=== PATIENT | female | born 1955 | race Caucasian/White ===

== ENCOUNTER 2019-01-03 17:03 | Inpatient (IN) | payer MEDICARE, MEDICAID ==
[~2019-01-03 17:03] MED LIST: CALC500C16 PO; LORA0.5T11 PO
[2019-01-03 18:03] LABS: HEMATOCRIT 49.1 % (36.0-47.0); MEAN CORPUSCULAR HEMOGLOBIN 29.3 pg (27.0-33.0); MEAN CORPUSCULAR HGB CONC 32.6 g/dl (32.0-36.5); MEAN CORPUSCULAR VOLUME 89.8 fl (80.0-96.0); PLATELET COUNT, AUTOMATED 252 10^3/uL (150-450); RED BLOOD COUNT 5.47 10^6/uL (4.00-5.40); WHITE BLOOD COUNT 6.4 10^3/uL (4.0-10.0)
[2019-01-03 18:49] LABS: AMPHETAMINES LEVEL URINE NEGATIVE (NEGATIVE); BARBITURATES URINE NEGATIVE (NEGATIVE); BENZODIAZEPINES URINE NEGATIVE (NEGATIVE); CANNABINOIDS URINE NEGATIVE (NEGATIVE); COCAINE METABOLITE URINE NEGATIVE (NEGATIVE); METHADONE URINE NEGATIVE (NEGATIVE); OPIATES URINE NEGATIVE (NEGATIVE); PHENCYCLIDINE URINE NEGATIVE (NEGATIVE)
[2019-01-03 18:50] LABS: ACETAMINOPHEN LEVEL < 2.0 UG/ML (10.0-30.0); ALBUMIN 4.1 GM/DL (3.2-5.2); ALT/SGPT 21 U/L (12-78); BILIRUBIN,DIRECT 0.1 MG/DL (0.0-0.2); BILIRUBIN,TOTAL 0.5 MG/DL (0.2-1.0); BLOOD UREA NITROGEN 11 MG/DL (7-18); CALCIUM LEVEL 9.4 MG/DL (8.8-10.2); CARBON DIOXIDE LEVEL 27 MEQ/L (21-32); CHLORIDE LEVEL 109 MEQ/L (98-107); CREATININE FOR GFR 0.79 MG/DL (0.55-1.30); ETHYL ALCOHOL (ETHANOL) < 0.003 % (0.000-0.010); GLOMERULAR FILTRATION RATE > 60.0 (>45); GLUCOSE, FASTING 99 MG/DL (70-100); POTASSIUM SERUM 3.9 MEQ/L (3.5-5.1); SALICYLATE LEVEL < 1.7 MG/DL (5.0-30.0); SODIUM LEVEL 142 MEQ/L (136-145); TOTAL PROTEIN 7.3 GM/DL (6.4-8.2)
[2019-01-03] MEDS ORDERED: PATIENT COMMENTS (21:12)
[2019-01-03] MEDS ORDERED: MAALOX 30 ML SUSP *UDC PO PRN (22:00)
[2019-01-03] MEDS ORDERED: MOM 30ML SUSPENSION UDC PO PRN (22:00)
[2019-01-03] MEDS ORDERED: traZODone 50 MG TAB PO PRN (22:00)
[2019-01-03] MEDS ORDERED: ACETAMINOPHEN TAB 650MG DOSE (2X325MG) PO PRN (22:00)
[2019-01-03] MEDS: LORazepam 0.5 MG TAB PO PRN (23:26)
[2019-01-04 06:36] VITALS: BP 137/69
[2019-01-04] MEDS: SERTRALINE 100 MG TAB PO SCH (09:00)
[2019-01-04] MEDS: LORazepam 0.5 MG TAB PO PRN (09:21)
--- NOTE | 2019-01-04 16:10 | HPEPDOC ---
General Date of Admission January 03, 2019 at 21:49 Chief Complaint The patient is a 64-year-old female admitted with a reason for visit of Unspecif ied Depressive Disorder. History of Present Illness Patient is a 64-year-old female, past medical history significant for developmental delay, obesity, depression and anxiety, brought to the emergency room by police on account of auditory hallucinations. There is documentation of noncompliance with medications and follow-up with treating providers. Yesterday, patient was deemed to have escalated to the point where she was thought to be a danger to herself, so they brought her to the emergency room for admission to inpatient psychiatric unit for further evaluation and management. On assessment, patient is unwilling to be evaluated stating she is afraid, and also refused physical exam. Home Medications Scheduled PRN Calcium Carbonate (Calcium) 500 Mg Chw, 500 MG PO PRN PRN for HEARTBURN, (Reported) Lorazepam (Lorazepam) 0.5 Mg Tab, 0.5 MG PO TID PRN for ANXIETY/AGITATION, (Reported) Miscellaneous Medications [Patient Comments] , (Reported) PATIENT STATES SHE TOOK HER LORAZEPAM THIS MORNING THEN SAID SHE DIDN'T TAKE ANYTHING. Allergies Coded Allergies: Penicillins (Verified Allergy, Unknown, 01/03/19) pt unsure of allergy and is a poor historian Past Medical History Medical History Obesity Medical nonadherence Developmental delay Surgical History Cholecystectomy Family History Patient declined assessment Social History * Smoker: Denies Alcohol: Denies Drugs: denies A-FIB/CHADSVASC A-FIB History Current/History of A-Fib/PAF?: No Current Oral Anticoagulant The: No Review of Systems Other systems patient declined assessment Physical Examination Other physical findings General: NAD. Skin: Warm, dry, intact. Respiratory: no accessory muscle use noted. Abdomen: no distention Musculoskeletal: No joint deformities, Neurologic: CN 2-12 grossly intact, Psychiatric: Anxious Vital Signs Vital Signs Date Time Temp Pulse Resp B/P (MAP) Pulse Ox O2 Delivery O2 Flow Rate FiO2 01/04/19 09:49 Room Air 01/04/19 06:36 97.4 72 16 137/69 (91) 01/03/19 17:05 99 Laboratory Data Labs 24H Laboratory Tests 2 01/03/19 17:56: Nucleated Red Blood Cells % (auto) 0.0, Anion Gap 6L, Glomerular Filtration Rate > 60.0, Calcium Level 9.4, Aspartate Amino Transf (AST/SGOT) 16, Alanine Aminotransferase (ALT/SGPT) 21, Alkaline Phosphatase 79, Total Bilirubin 0.5, Direct Bilirubin 0.1, Total Protein 7.3, Albumin 4.1, Albumin/Globulin Ratio 1.28, Thyroid Stimulating Hormone (TSH) 1.750, Salicylates Level < 1.7L, Acetaminophen Level < 2.0L, Ethyl Alcohol Level < 0.003 01/03/19 17:59: Urine Amphetamines Screen NEGATIVE, Urine Benzodiazepines Screen NEGATIVE, Urine Opiates Screen NEGATIVE, Urine Methadone Screen NEGATIVE, Urine Barbiturates Screen NEGATIVE, Urine Phencyclidine Screen NEGATIVE, Urine Cocaine Metabolite Screen NEGATIVE, Urine Cannabinoids Screen NEGATIVE 01/04/19 14:40: CBC/BMP Laboratory Tests 01/03/19 17:56 Red Blood Count 5.47 H, Mean Corpuscular Volume 89.8, Mean Corpuscular Hemoglobin 29.3, Mean Corpuscular Hemoglobin Concent 32.6, Red Cell Distribution Width 13.2 Microbiology Microbiology 01/04/19 Urine Culture, Received Pending Assessment/Plan Altered mental status -At this time etiology is unclear -Urinalysis ordered with culture and sensitivity to evaluate for possible urinary tract infection Depression/Anxiety -Management by primary team DVT prophylaxis -Patient is frequently ambulatory Plan / VTE VTE Prophylaxis Ordered?: No VTE Exclusion Mechanical Proph: Low Risk for VTE LILIA CAO January 04, 2019 16:10
[2019-01-04 16:12] LABS: APPEARANCE, URINE CLOUDY (CLEAR); BACTERIA, URINE AUTO NEGATIVE (NEGATIVE); BILIRUBIN, URINE AUTO NEGATIVE (NEGATIVE); BLOOD, URINE BLOOD 1+ (NEGATIVE); CALCIUM OXALATE CRYSTALS LARGE; COLOR, URINE YELLOW (YELLOW); GLUCOSE, URINE (UA) AUTO NEGATIVE (NEGATIVE); KETONE, URINE AUTO NEGATIVE (NEGATIVE); LEUKOCYTE ESTERASE, URINE AUTO 3+ (NEGATIVE); MUCUS, URINE SMALL (NEGATIVE); NITRITE, URINE AUTO NEGATIVE (NEGATIVE); PROTEIN, URINE AUTO NEGATIVE (NEGATIVE); RBC, URINE AUTO 5 /HPF (0-3); SPECIFIC GRAVITY URINE AUTO 1.018 (1.002-1.035); SQUAMOUS EPITHELIAL CELL UR AU 15 /HPF (0-6); TRANSITIONAL EPITHELIAL AUTO 3 /HPF; UROBILINOGEN, URINE AUTO 0.2 mg/dL (0.0-2.0); WBC, URINE AUTO 123 /HPF (0-3)
[2019-01-04 18:00] VITALS: BP 129/60
--- NOTE | 2019-01-04 18:51 | MHHPEPDOC ---
General Date Of Admission: January 04, 2019 Legal Status: 9.39 Chief Complaint Her PCP issued a case picker order because she is decompensating, has been non compliant and seems to be very guarded, she has been isolative, says that her phone has been ringing History of Present Illness HISTORY OF THE PRESENT ILLNESS: Patient is a 64 -year-old , female, who, as per ED report: "[facility] , because pt has been non-compliant with her medications, has a functional MR rating (per Siri) has been decompensating since Oct 2018, secluding herself, confused, "somebody keeps calling her phone, weird noises," Pt states she has been crying all the time, stays with other tenants "doesn't wish to be alone," pt says she does take her medications, denies being suicidal, or wishing to kill herself, birthday was yesterday on the , denies hearing voices, yet she seems to be responding to internal stimuli, talking to herself, or someone not in the room, paranoid about having to go to psyche and "they are not going to let me go home." Pt also stated her brother at age 47 killed himself with a shotgun to the head. Pt is very guarded in her presentation, tearful at times, not sure why she is here. Most of the informat ion was gathered from pt's [employer] family independence case manager Flavio So [phone]. Siri stated also that the pt resides alone, has adult protective in the apartment, and is usually very independent, and siri has concerns for pt's safety as well as the Pt's PCP Jono" Psychiatric Review of Systems Depression (2 or more weeks): depressed mood, anhedonia, feelings of worthlesn ess, decreased energy, difficulty concentrating, psychomotor changes, other (hopeless and helpless) Mili (4 or more days of): denies Psychosis: paranoia, other (She seems to be responding to internal stimuli, at times she makes movements with her lips as if she would be praying, she is guarded, not providing information) PTSD: denies Anxiety: gen/non-specific anxiety Anxiety/ 6 months or more of: other (patient couldn't answer all my questions, she seems very anxious but she is vey guarded) Past Psychiatric History Previous Psychiatric Diagnosis: Unknown Previous Psychiatric Admissions: Unknown, patient is not able to tell me if has been or has not been hospitalized Suicide Attempts: Denies Psychiatric Follow-up: Denies Psychiatric medications: Denies. Past Medical History Medical Problems The patient is internally preoccupied an very guarded, she was uncooperative with the interview Family Medical/Psychiatric HX Medical Problems She said both her parents , she couldn't say what was the cause of , she said she had siblings but she didn't know where they were and has no idea if they are alive or not. she was very guarded and was not able to respond the other questions, she kept getting up as if she was preoccupied with another person in the room Addiction History denies Social History Childhood: Unknown, patient could not cooperate with the interview, she was very guarded Abuse/Trauma: Denies Current Living Situation: She says she lives in [place], says she rents an apartment, has been there for 11 years Education: unknown, patient is not answering this question Employment: Unemployed Social Support: None, she says Legal: Denies Marital: Never , has no children. Mental Status Examination General Appearance: unkempt, disheveled, ds/not appear stated age (looks o lder), hospital scubs/clothing Build: average Demeanor: mistrustful, withdrawn, preoccupied, very figety Eye Contact: avoidant, poor Activity: anxious Behavior: resistant, restless, withdrawn Speech: slow, low in volume, non-spontaneous, impoverished Mood: depressed, anxious Affect: constricted, inappropriate, congruent, anxious Thought Process: other (she seems to be psychotic, she doesn't respond all the quetions during the interview during times when she seems to be responding to internal stimuli) Thought Content (Delusions): denies SI, HI, AVH, paranoia (she seems paranoid) Thought Content (Other): internal-stimuli Thought Content (Aggressive): none reported Perception (Hallucinations): other (she denies but seems to be responding to internal stimuli) Perception (Other): none reported Cognition (Impairment of): memory, attention/concentration Cognition(Intelligence Est.): borderline Oriented: Awake, Alert Insight: poor Judgment: Poor Psychosis: Psychotic Perceptions Diagnoses 1. Unspecified psychotic disorder 2. R/O JHON 3. R/O Mood disorder Assessment Patient seems to be very anxious, she couldn't open the milk container, she couldn't open he cup with the ice cream during dinner time. According to staff she appears as if she couldn't take care of herself but she can. According to history, she tells me she doesn't like her neighbors and stays to herself but the report from the ED says that she doesn't like to be alone and has been staying with other tenants. Will be started on antipsychotic medication Initial Treatment Plan 1. Patient was admitted on a [9.39] status. 2. Complete history was obtained. 3. With patients permission, family will be contacted and database will be expanded. 4. Patients medication regimen will be reviewed and changed accordingly. 5. Patient will be provided with protected environment. 6. Patient will be treated with individual, group, and milieu therapies. 7. Patient will receive supportive psych-education. 8. Discharge planning will commence immediately. 9. Outpatient follow-up treatment will be strongly recommended. 10. The initial treatment plan will focus initially on: * Depression. * Risk for suicide. * Substance abuse. ESTIMATED LENGTH OF STAY: - DAYS. TIME SPENT COUNSELING AND COORDINATING INITIAL CARE: minutes. Vital Signs Vital Signs Date Time Temp Pulse Resp B/P (MAP) Pulse Ox O2 Delivery O2 Flow Rate FiO2 01/04/19 09:49 Room Air 01/04/19 06:36 97.4 72 16 137/69 (91) 01/03/19 17:05 99 Laboratory Data 24H Labs Laboratory Tests 2 01/03/19 17:56: Nucleated Red Blood Cells % (auto) 0.0, Anion Gap 6L, Glomerular Filtration Rate > 60.0, Calcium Level 9.4, Aspartate Amino Transf (AST/SGOT) 16, Alanine Aminotransferase (ALT/SGPT) 21, Alkaline Phosphatase 79, Total Bilirubin 0.5, D irect Bilirubin 0.1, Total Protein 7.3, Albumin 4.1, Albumin/Globulin Ratio 1.28, Thyroid Stimulating Hormone (TSH) 1.750, Salicylates Level < 1.7L, Acetaminophen Level < 2.0L, Ethyl Alcohol Level < 0.003 01/03/19 17:59: Urine Amphetamines Screen NEGATIVE, Urine Benzodiazepines Screen NEGATIVE, Urine Opiates Screen NEGATIVE, Urine Methadone Screen NEGATIVE, Urine Barbiturates S creen NEGATIVE, Urine Phencyclidine Screen NEGATIVE, Urine Cocaine Metabolite Screen NEGATIVE, Urine Cannabinoids Screen NEGATIVE 01/04/19 14:40: Urine Appearance CLOUDYH, Urine Color YELLOW, Urine pH 5.0, Urine Specific [place] 1.018, Urine Protein NEGATIVE, Urine Glucose (UA) NEGATIVE, Urine Ketones NEGATIVE, Urine Urobilinogen 0.2, Urine Bilirubin NEGATIVE, Urine Leukocyte Esterase 3+H, Urine Blood 1+H, Urine Nitrite NEGATIVE, Urine WBC (Auto) 123H, Urine RBC (Auto) 5H, Urine Hyaline Casts (Auto) 0, Urine Bacteria (Auto) NEGATIVE, Urine Squamous Epithelial Cells 15, Urine Transitional Epithelial Cells 3, Urine Calcium Oxalate Cryst (Auto) LARGE, Urine Mucus (Auto) SMALL, Urine Sperm (Auto) CBC/BMP Laboratory Tests 01/03/19 17:56 Red Blood Count 5.47 H, Mean Corpuscular Volume 89.8, Mean Corpuscular Hemoglobin 29.3, Mean Corpuscular Hemoglobin Concent 32.6, Red Cell Distribution Width 13.2 Medications Scheduled PRN Calcium Carbonate (Calcium) 500 Mg Chw, 500 MG PO PRN PRN for HEARTBURN, (Reported) Lorazepam (Lorazepam) 0.5 Mg Tab, 0.5 MG PO TID PRN for ANXIETY/AGITATION, (Reported) Miscellaneous Medications [Patient Comments] , (Reported) PATIENT STATES SHE TOOK HER LORAZEPAM THIS MORNING THEN SAID SHE DIDN'T TAKE ANYTHING. Allergies Coded Allergies: Penicillins (Verified Allergy, Unknown, 01/03/19) pt unsure of allergy and is a poor historian JIMENEZ CHENEY MD January 04, 2019 17:33
[2019-01-04] MEDS ORDERED: BENZTROPINE 0.5 MG TAB PO PRN (19:00)
[2019-01-04] MEDS: CIPROFLOXACIN 500 MG TAB PO SCH (19:41)
[2019-01-04] MEDS: PALIPERIDONE 3 MG ER TAB (INVEGA) PO SCH (19:41)
[2019-01-05] MEDS: CIPROFLOXACIN 500 MG TAB PO SCH ×2 (06:20→17:27)
[2019-01-05 06:45] VITALS: BP 120/62
[2019-01-05] MEDS: SERTRALINE 100 MG TAB PO SCH (08:47)
--- NOTE | 2019-01-05 13:09 | IPNPDOC ---
Subjective Date Seen The patient was seen on 01/05/19. Subjective Chief Complaint/HPI Patient is a 64-year-old female, past medical history significant for developmental delay, obesity, depression and anxiety, brought to the emergency room by police on account of auditory hallucinations. Events since last encounter Patient has no complaints today. Objective Physical Examination Other physical findings General: NAD. Skin: Warm, dry, intact. Cardiovascular: Regular rate and rhythm, no MRG, no jugular venous distention, no edema. Respiratory:CTAB, no accessory muscle use noted. Abdomen: Bowel sounds +, no tenderness, no distention Musculoskeletal: No joint deformities, Neurologic: CN 2-12 grossly intact, alert and oriented to self and place Psychiatric: Anxious A-FIB/CHADSVASC A-FIB History Current/History of A-Fib/PAF?: No Current Oral Anticoagulant The: No Assessment /Plan Assessment UTI -has been started on abiotic therapy with Cipro -follow culture report for antibiotic adjustment if indicated. Plan/VTE VTE Prophylaxis Ordered?: No VTE Exclusion Mechanical Proph: Low Risk for VTE VS, I&O, 24H, Fishbone Vital Signs/I&O Vital Signs Date Time Temp Pulse Resp B/P (MAP) Pulse Ox O2 Delivery O2 Flow Rate FiO2 01/05/19 07:55 Room Air 01/05/19 06:45 98.0 69 16 120/62 (81) 01/03/19 17:05 99 Laboratory Data 24H LABS Laboratory Tests 2 01/04/19 14:40: Urine Appearance CLOUDYH, Urine Color YELLOW, Urine pH 5.0, Urine Specific [place] 1.018, Urine Protein NEGATIVE, Urine Glucose (UA) NEGATIVE, Urine Ketones NEGATIVE, Urine Urobilinogen 0.2, Urine Bilirubin NEGATIVE, Urine Leukocyte Esterase 3+H, Urine Blood 1+H, Urine Nitrite NEGATIVE, Urine WBC (Auto) 123H, Urine RBC (Auto) 5H, Urine Hyaline Casts (Auto) 0, Urine Bacteria (Auto) NEGATIVE, Urine Squamous Epithelial Cells 15, Urine Transitional Epithelial Cells 3, Urine Calcium Oxalate Cryst (Auto) LARGE, Urine Mucus (Auto) SMALL, Urine Sperm (Auto) Microbiology Microbiology 01/04/19 Urine Culture - Final, Complete LILIA CAO January 05, 2019 13:09
[2019-01-05 18:00] VITALS: BP 136/72
[2019-01-05] MEDS: PALIPERIDONE 3 MG ER TAB (INVEGA) PO SCH (20:03)
--- NOTE | 2019-01-05 20:59 | MHIPNPDOC ---
[facility] Progress Note Progress Note DATE OF SERVICE: 01/05/19 HISTORY: Patient is a 64 -year-old , female, who, as per ED report: "Pt presented with [facility] on a 9:57 pickup ordered by her PCP , because pt has been non-compliant with her medications, has a functional MR rating (per Siri) has been decompensating since Oct 2018, secluding herself, confused, "somebody keeps calling her phone, weird noises," Pt states she has been crying all the time, stays with other tenants "doesn't wish to be alone," pt says she does take her medications, denies being suicidal, or wishing to kill herself, birthday was yesterday on the , denies hearing voices, yet she seems to be responding to internal stimuli, talking to herself, or someone not in the room, paranoid about having to go to psyche and "they are not going to let me go home." Pt also stated her brother at age 47 killed himself with a shotgun to the head. Pt is very guarded in her presentation, tearful at times, not sure why she is here. Most of the information was gathered from pt's [employer] disease case manager Flavio So [phone]. Siri stated also that the pt resides alone, has adult protective in the apartment, and is usually very independent, and siri has concerns for pt's safety as well as the Pt's PCP Jono" VITAL SIGNS: See below. NEW TEST RESULTS: See below CURRENT MEDICATIONS: See below. MENTAL STATUS EXAMINATION: General Appearance: unkempt, disheveled, ds/not appear stated age (looks older), hospital scrubs/clothing Build: average Demeanor: mistrustful, withdrawn, preoccupied, very figety Eye Contact: avoidant, poor Activity: anxious Behavior: resistant, restless, withdrawn Speech: slow, low in volume, non-spontaneous, impoverished Mood: depressed, anxious Affect: constricted, inappropriate, congruent, anxious Thought Process: other (she seems to be psychotic, she doesn't respond all the quetions during the interview during times when she seems to be responding to internal stimuli) Thought Content (Delusions): denies SI, HI, AVH, paranoia (she seems paranoid) Thought Content (Other): internal-stimuli Thought Content (Aggressive): none reported Perception (Hallucinations): other (she denies but seems to be responding to internal stimuli) Perception (Other): none reported Cognition (Impairment of): memory, attention/concentration Cognition(Intelligence Est.): borderline Oriented: Awake, Alert Insight: poor Judgment: Poor Psychosis: Psychotic Perceptions Diagnoses 1. Unspecified psychotic disorder 2. R/O JHON 3. R/O Mood disorder ASSESSMENT: The mental status examination has not changed much since yesterday but she was able to tell me that she likes to keep to herself but that she has a friend in the apartment complex that she lives at and sometimes they visit each other. the patient's urinalysis came back yesterday and she has a UTI. Sill awaiting for the cultureand sensitivity results. she was started yesterday on Ciprofloxacin 500 mgs PO BID. UTI could have been the cause of her decompensation. Will do urinalysis (control) in a fed days. MANAGEMENT PLAN: Continue with the current treatment plan TIME SPENT: 15 minutes. Vital Signs Vital Signs Date Time Temp Pulse Resp B/P (MAP) Pulse Ox O2 Delivery O2 Flow Rate FiO2 01/05/19 07:55 Room Air 01/05/19 06:45 98.0 69 16 120/62 (81) 01/03/19 17:05 99 Current Medications Current Medications Acetaminophen (Tylenol Tab) 650 mg Q6HP PRN PO HEADACHE or DISCOMFORT; Start 01/03/19 at 22:00 Al Hydrox/Mg Hydrox/Simethicone (Mylanta) 30 ml Q4HP PRN PO HEARTBURN/INDIGESTION Last administered on 01/04/19at 16:40; Start 01/03/19 at 22:00 Benztropine Mesylate (Cogentin) 0.5 mg BID PRN PO EXTRAPYRAMIDAL SIDE EFFECTS; Start 01/04/19 at 19:00 Ciprofloxacin (Cipro) 500 mg BID@06,18 PO Last administered on 01/05/19at 17:27; Start 01/04/19 at 18:00 Home Med (Med Rec Complete!) ASDIRECTED XX ; Start 01/03/19 at 21:15; Stop 01/03/19 at 21:16; Status DC Lorazepam (Ativan) 0.5 mg TIDP PRN PO ANXIETY Last administered on 01/04/19at 09:21; Start 01/03/19 at 22:00 Magnesium Hydroxide (Milk Of Magnesia) 30 ml DAILYPRN PRN PO CONSTIPATION; Start 01/03/19 at 22:00 Paliperidone (Invega) 3 mg QHS PO Last administered on 01/05/19at 20:03; Start 01/04/19 at 21:00 Sertraline HCl (Zoloft) 100 mg DAILY PO Last administered on 01/05/19at 08:47; Start 01/04/19 at 09:00 Trazodone HCl (Desyrel) 50 mg QHSP PRN PO INSOMNIA Last administered on 01/03/19at 23:26; Start 01/03/19 at 22:00 Allergies Coded Allergies: Penicillins (Verified Allergy, Unknown, 01/03/19) pt unsure of allergy and is a poor historian JIMENEZ CHENEY MD January 05, 2019 20:52
[2019-01-06] MEDS: CIPROFLOXACIN 500 MG TAB PO SCH ×2 (06:15→17:23)
[2019-01-06 06:41] VITALS: BP 144/65
[2019-01-06] MEDS: SERTRALINE 100 MG TAB PO SCH (09:32)
[2019-01-06 18:24] VITALS: BP 128/65
--- NOTE | 2019-01-06 20:17 | MHIPNPDOC ---
[facility] Progress Note Progress Note DATE OF SERVICE: 01/06/19 HISTORY: Patient is a 64 -year-old , female, who, as per ED report: "Pt presented with [facility] on a 9:57 pickup ordered by her PCP , because pt has been non-compliant with her medications, has a functional MR rating (per Siri) has been decompensating since Oct 2018, secluding herself, confused, "somebody keeps calling her phone, weird noises," Pt states she has been crying all the time, stays with other tenants "doesn't wish to be alone," pt says she does take her medications, denies being suicidal, or wishing to kill herself, birthday was yesterday on the , denies hearing voices, yet she seems to be responding to internal stimuli, talking to herself, or someone not in the room, paranoid about having to go to psyche and "they are not going to let me go home." Pt also stated her brother at age 47 killed himself with a shotgun to the head. Pt is very guarded in her presentation, tearful at times, not sure why she is here. Most of the information was gathered from pt's [facility] business case analyst Flavio So [phone]. Siri stated also that the pt resides alone, has adult protective in the apartment, and is usually very independent, and siri has concerns for pt's safety as well as the Pt's PCP Jono" VITAL SIGNS: See below. NEW TEST RESULTS: See below CURRENT MEDICATIONS: See below. MENTAL STATUS EXAMINATION: General Appearance: Appropriate hygiene, ds/not appear stated age (looks older), hospital scrubs/clothing Build: average Demeanor: less mistrustful, less fidgety Eye Contact: Continues to be avoidant ut at times, very briefly, she is able to establish eye contact Activity: anxious Behavior: resistant, restless, withdrawn Speech: slow, low in volume, non-spontaneous, impoverished Mood: depressed, anxious Affect: constricted, inappropriate, congruent, anxious Thought Process: illogical, linear Thought Content (Delusions): denies SI, HI, AVH, paranoia (she seems paranoid) Thought Content (Other): internal-stimuli ( she seems to be mumbling or talking to herself at times) Thought Content (Aggressive): none reported Perception (Hallucinations): other (she denies but seems to be responding to internal stimuli) Perception (Other): none reported Cognition (Impairment of): memory, attention/concentration Cognition(Intelligence Est.): borderline Oriented: Awake, Alert Insight: poor Judgment: Poor Psychosis: Psychotic Perceptions Diagnoses 1. Unspecified psychotic disorder 2. R/O JHON 3. R/O Mood disorder ASSESSMENT: The patient continues to exhibit some dependant/co dependant behaviors, expecting other people to do things for her. It takes time for her to process some thoughts. she has been on antibiotics for some time now, she might improve once UTI resolved. MANAGEMENT PLAN: Continue with the current treatment plan TIME SPENT: 15 minutes. Vital Signs Vital Signs Date Time Temp Pulse Resp B/P (MAP) Pulse Ox O2 Delivery O2 Flow Rate FiO2 01/06/19 18:24 99.2 80 18 128/65 (86) 01/06/19 08:12 Room Air 01/03/19 17:05 99 Current Medications Current Medications Acetaminophen (Tylenol Tab) 650 mg Q6HP PRN PO HEADACHE or DISCOMFORT; Start 01/03/19 at 22:00 Al Hydrox/Mg Hydrox/Simethicone (Mylanta) 30 ml Q4HP PRN PO HEARTBURN/INDIGESTION Last administered on 01/04/19at 16:40; Start 01/03/19 at 22 :00 Benztropine Mesylate (Cogentin) 0.5 mg BID PRN PO EXTRAPYRAMIDAL SIDE EFFECTS; Start 01/04/19 at 19:00 Ciprofloxacin (Cipro) 500 mg BID@06,18 PO Last administered on 01/06/19at 17:23; Start 01/04/19 at 18:00 Home Med (Med Rec Complete!) ASDIRECTED XX ; Start 01/03/19 at 21:15; Stop 01/03/19 at 21:16; Status DC Lorazepam (Ativan) 0.5 mg TIDP PRN PO ANXIETY Last administered on 01/04/19at 09:21; Start 01/03/19 at 22:00 Magnesium Hydroxide (Milk Of Magnesia) 30 ml DAILYPRN PRN PO CONSTIPATION; Start 01/03/19 at 22:00 Paliperidone (Invega) 3 mg QHS PO Last administered on 01/05/19at 20:03; Start 01/04/19 at 21:00 Sertraline HCl (Zoloft) 100 mg DAILY PO Last administered on 01/06/19at 09:32; Start 01/04/19 at 09:00 Trazodone HCl (Desyrel) 50 mg QHSP PRN PO INSOMNIA Last administered on 01/03/19at 23:26; Start 01/03/19 at 22:00 Allergies Coded Allergies: Penicillins (Verified Allergy, Unknown, 01/03/19) pt unsure of allergy and is a poor historian JIMENEZ CHENEY MD January 06, 2019 20:17
[2019-01-06] MEDS: PALIPERIDONE 3 MG ER TAB (INVEGA) PO SCH (21:36)
[2019-01-07 06:42] VITALS: BP 148/90
[2019-01-07] MEDS: CIPROFLOXACIN 500 MG TAB PO SCH ×2 (06:59→18:17)
[2019-01-07] MEDS: SERTRALINE 100 MG TAB PO SCH (09:41)
[2019-01-07] MEDS: PALIPERIDONE 3 MG ER TAB (INVEGA) PO SCH ×2 (11:51→21:38)
[2019-01-07 18:00] VITALS: BP 136/88
--- NOTE | 2019-01-07 20:26 | MHIPNPDOC ---
[facility] Progress Note Progress Note DATE OF SERVICE: 01/07/19 HISTORY: Patient is a 64 -year-old , female, who, as per ED report: "Pt presented with Gerard Jovel on a 9:57 pickup ordered by her PCP , because pt has been non-compliant with her medications, has a functional MR rating (per Siri) has been decompensating since Oct 2018, secluding herself, confused, "somebody keeps calling her phone, weird noises," Pt states she has been crying all the time, stays with other tenants "doesn't wish to be alone," pt says she does take her medications, denies being suicidal, or wishing to kill herself, birthday was yesterday on the , denies hearing voices, yet she seems to be responding to internal stimuli, talking to herself, or someone not in the room, paranoid about having to go to psyche and "they are not going to let me go home." Pt also stated her brother at age 47 killed himself with a shotgun to the head. Pt is very guarded in her presentation, tearful at times, not sure why she is here. Most of the information was gathered from pt's [employer] case planner Flavio So [phone]. Siri stated also that the pt resides alone, has adult protective in the apartment, and is usually very independent, and siri has concerns for pt's safety as well as the Pt's PCP Jono" VITAL SIGNS: See below. NEW TEST RESULTS: See below CURRENT MEDICATIONS: See below. MENTAL STATUS EXAMINATION: General Appearance: Appropriate hygiene, ds/not appear stated age (looks older), hospital scrubs/clothing Build: average Demeanor: less mistrustful, less fidgety Eye Contact: Continues to be avoidant at times, very briefly, she is able to establish eye contact Activity: anxious Behavior: cooperative, less resistant, less withdrawn, anxious Speech: slow, low in volume, spontaneous, not fluent Mood: depressed, anxious Affect: constricted, inappropriate, congruent, anxious Thought Process: illogical, linear Thought Content (Delusions): denies SI, HI, AVH, paranoia (she seems paranoid) Thought Content (Other): She was not observed to be responding to internal stimuli at this time Thought Content (Aggressive): none reported Perception (Hallucinations): none reported Perception (Other): none reported Cognition (Impairment of): memory, attention/concentration Cognition(Intelligence Est.): borderline Oriented: Awake, Alert Insight: poor Judgment: Poor Psychosis: Psychotic Perceptions Diagnoses 1. Unspecified psychotic disorder 2. R/O JHON 3. R/O Mood disorder ASSESSMENT:The patient is improving, although slowly. she is more talkative, less guarded but at the same time she continues to feel paranoid towards her neighbor, who lives in the first floor of the house she lives (in the second floor). Asked her repeatedly what is what her neighbor does to her and she couldn't tell me. She tells me not to send her home yet because she still feels she is going to be upset if she goes back and sees her neighbor. MANAGEMENT PLAN: Continue with the current treatment plan TIME SPENT: 15 minutes. Vital Signs Vital Signs Date Time Temp Pulse Resp B/P (MAP) Pulse Ox O2 Delivery O2 Flow Rate FiO2 01/07/19 18:00 99.0 81 16 136/88 (104) 01/07/19 08:00 Room Air 01/03/19 17:05 99 Current Medications Current Medications Acetaminophen (Tylenol Tab) 650 mg Q6HP PRN PO HEADACHE or DISCOMFORT; Start 01/03/19 at 22:00 Al Hydrox/Mg Hydrox/Simethicone (Mylanta) 30 ml Q4HP PRN PO HEARTBURN/INDIGESTION Last administered on 01/04/19at 16:40; Start 01/03/19 at 22:00 Benztropine Mesylate (Cogentin) 0.5 mg BID PRN PO EXTRAPYRAMIDAL SIDE EFFECTS; Start 01/04/19 at 19:00 Ciprofloxacin (Cipro) 500 mg BID@06,18 PO Last administered on 01/07/19at 18:17; Start 01/04/19 at 18:00 Home Med (Med Rec Complete!) ASDIRECTED XX ; Start 01/03/19 at 21:15; Stop 01/03/19 at 21:16; Status DC Lorazepam (Ativan) 0.5 mg TIDP PRN PO ANXIETY Last administered on 01/04/19at 09:21; Start 01/03/19 at 22:00 Magnesium Hydroxide (Milk Of Magnesia) 30 ml DAILYPRN PRN PO CONSTIPATION; Start 01/03/19 at 22:00 Paliperidone (Invega) 3 mg BID PO Last administered on 01/07/19 11:51; Start 01/07/19 at 09:00 Paliperidone (Invega) 3 mg QHS PO Last administered on 01/06/19at 21:36; Start 01/04/19 at 21:00; Stop 01/07/19 at 10:10; Status DC Sertraline HCl (Zoloft) 100 mg DAILY PO Last administered on 01/07/19 09:41; Start 01/04/19 at 09:00 Trazodone HCl (Desyrel) 50 mg QHSP PRN PO INSOMNIA Last administered on 01/03/19 23:26; Start 01/03/19 at 22:00 Allergies Coded Allergies: Penicillins (Verified Allergy, Unknown, 01/03/19) pt unsure of allergy and is a poor historian JIMENEZ CHENEY MD January 07, 2019 20:26
[2019-01-08] MEDS: CIPROFLOXACIN 500 MG TAB PO SCH ×2 (06:05→17:08)
[2019-01-08 07:21] VITALS: BP 150/70
[2019-01-08 09:40] VITALS: BP 120/71
[2019-01-08] MEDS: SERTRALINE 100 MG TAB PO SCH (09:51)
[2019-01-08] MEDS: PALIPERIDONE 3 MG ER TAB (INVEGA) PO SCH ×2 (09:51→20:51)
[2019-01-08] MEDS ORDERED: POLYVINYL ALCOHOL OPHTH SOLN 15 ML(LIQUITEARS) OU PRN (13:15)
[2019-01-08 18:43] VITALS: BP 135/83
--- NOTE | 2019-01-08 20:05 | MHIPNPDOC ---
[facility] Progress Note Progress Note DATE OF SERVICE: 01/08/19 HISTORY: HISTORY: Patient is a 64 -year-old , female, who, as per ED report: "Pt presented with Gerard Jovel on a 9:57 pickup ordered by her PCP , because pt has been non-compliant with her medications, has a functional MR rating (per Siri) has been decompensating since Oct 2018, secluding herself, confused, "somebody keeps calling her phone, weird noises," Pt states she has been crying all the time, stays with other tenants "doesn't wish to be alone," pt says she does take her medications, denies being suicidal, or wishing to kill herself, birthday was yesterday on the , denies hearing voices, yet she seems to be responding to internal stimuli, talking to herself, or someone not in the room, paranoid about having to go to psyche and "they are not going to let me go home." Pt also stated her brother at age 47 killed himself with a shotgun to the head. Pt is very guarded in her presentation, tearful at times, not sure why she is here. Most of the information was gathered from pt's [facility] correctional casework specialist Flavio So [phone]. Siri stated also that the pt resides alone, has adult protective in the apartment, and is usually very independent, and siri has concerns for pt's safety as well as the Pt's PCP Jono" VITAL SIGNS: See below. NEW TEST RESULTS: See below CURRENT MEDICATIONS: See below. MENTAL STATUS EXAMINATION: General Appearance: Appropriate hygiene, ds/not appear stated age (looks older), hospital scrubs/clothing Build: average Demeanor: less mistrustful, less fidgety Eye Contact: Continues to be avoidant at times, very briefly, she is able to establish eye contact Activity: anxious Behavior: cooperative, less resistant, less withdrawn, anxious Speech: slow, low in volume, spontaneous, not fluent Mood: depressed, anxious Affect: constricted, inappropriate, congruent, anxious Thought Process: illogical, linear Thought Content (Delusions): denies SI, HI, AVH, paranoia (she seems paranoid) Thought Content (Other): She was not observed to be responding to internal stimuli at this time Thought Content (Aggressive): none reported Perception (Hallucinations): none reported Perception (Other): none reported Cognition (Impairment of): memory, attention/concentration Cognition(Intelligence Est.): borderline Oriented: Awake, Alert Insight: poor Judgment: Poor Psychosis: Psychotic Perceptions Diagnoses 1. Unspecified psychotic disorder 2. R/O JHON 3. R/O Mood disorder ASSESSMENT:The patient says that she is not having suicidal or homicidal thoughts, she becomes upset when I aske her once again about this, because, she says that she already told me before that she is not and I explain that I have to ask those questions every day. She was laying in bed and was cooperative with the interview but at times she speaks really softly, with her teeth leaving just one small space between them. When she does that, she seems to be very upset. She still has paranoid thoughts about her neighbor. Discussed patient situation during treatment team and agreed on getting more information about this neighbor, to determine if she really has been harassing the patient or not. MANAGEMENT PLAN: Continue with the current treatment plan TIME SPENT: 15 minutes. Vital Signs Vital Signs Date Time Temp Pulse Resp B/P (MAP) Pulse Ox O2 Delivery O2 Flow Rate FiO2 01/08/19 18:43 98.5 91 16 135/83 (100) 01/07/19 08:00 Room Air 01/03/19 17:05 99 Current Medications Current Medications Acetaminophen (Tylenol Tab) 650 mg Q6HP PRN PO HEADACHE or DISCOMFORT; Start 01/03/19 at 22:00 Al Hydrox/Mg Hydrox/Simethicone (Mylanta) 30 ml Q4HP PRN PO HEARTBURN/INDIGESTION Last administered on 01/04/19at 16:40; Start 01/03/19 at 22:00 Artificial Tears (Akwa Tears) 2 drop QIDP PRN OU DRY EYES Last administered on 01/08/19at 16:57; Start 01/08/19 at 13:15 Benztropine Mesylate (Cogentin) 0.5 mg BID PRN PO EXTRAPYRAMIDAL SIDE EFFECTS; Start 01/04/19 at 19:00 Ciprofloxacin (Cipro) 500 mg BID@,18 PO Last administered on 01/08/19at 17:08; Start 01/04/19 at 18:00 Home Med (Med Rec Complete!) ASDIRECTED XX ; Start 01/03/19 at 21:15; Stop 01/03/19 at 21:16; Status DC Lorazepam (Ativan) 0.5 mg TIDP PRN PO ANXIETY Last administered on 01/04/19 09:21; Start 01/03/19 at 22:00 Magnesium Hydroxide (Milk Of Magnesia) 30 ml DAILYPRN PRN PO CONSTIPATION; S tart 01/03/19 at 22:00 Paliperidone (Invega) 3 mg BID PO Last administered on 01/08/19 09:51; Start 01/07/19 at 09:00 Paliperidone (Invega) 3 mg QHS PO Last administered on 01/06/19at 21:36; Start 01/04/19 at 21:00; Stop 01/07/19 at 10:10; Status DC Sertraline HCl (Zoloft) 100 mg DAILY PO Last administered on 01/08/19 09:51; Start 01/04/19 at 09:00 Trazodone HCl (Desyrel) 50 mg QHSP PRN PO INSOMNIA Last administered on 01/03/19 23:26; Start 01/03/19 at 22:00 Allergies Coded Allergies: Penicillins (Verified Allergy, Unknown, 01/03/19) pt unsure of allergy and is a poor historian JIMENEZ CHENEY MD January 08, 2019 20:05
[2019-01-09] MEDS: CIPROFLOXACIN 500 MG TAB PO SCH ×2 (06:16→17:19)
[2019-01-09 06:20] VITALS: BP 140/70
[2019-01-09] MEDS: PALIPERIDONE 3 MG ER TAB (INVEGA) PO SCH ×2 (08:18→20:26)
[2019-01-09] MEDS: SERTRALINE 100 MG TAB PO SCH (08:19)
--- NOTE | 2019-01-09 16:46 | MHIPNPDOC ---
[facility] Progress Note Progress Note DATE OF SERVICE: 01/09/19 HISTORY: HISTORY: Patient is a 64 -year-old , female, who, as per ED report: "Pt presented with Gerard Jovel on a 9:57 pickup ordered by her PCP , because pt has been non-compliant with her medications, has a functional MR rating (per Siri) has been decompensating since Oct 2018, secluding herself, confused, "somebody keeps calling her phone, weird noises," Pt states she has been crying all the time, stays with other tenants "doesn't wish to be alone," pt says she does take her medications, denies being suicidal, or wishing to kill herself, birthday was yesterday on the , denies hearing voices, yet she seems to be responding to internal stimuli, talking to herself, or someone not in the room, paranoid about having to go to psyche and "they are not going to let me go home." Pt also stated her brother at age 47 killed himself with a shotgun to the head. Pt is very guarded in her presentation, tearful at times, not sure why she is here. Most of the information was gathered from pt's [facility] employment case manager Flavio So [phone]. Siri stated also that the pt resides alone, has adult protective in the apartment, and is usually very independent, and siri has concerns for pt's safety as well as the Pt's PCP Jono" VITAL SIGNS: See below. NEW TEST RESULTS: See below CURRENT MEDICATIONS: See below. MENTAL STATUS EXAMINATION: General Appearance: Appropriate hygiene, ds/not appear stated age (looks older), hospital scrubs/clothing Build: average Demeanor: less mistrustful, less fidgety Eye Contact: Continues to be avoidant at times, very briefly, she is able to establish eye contact Activity: anxious Behavior: cooperative, but she is more anxious and more resistant than yesterday Speech: slow, low in volume, spontaneous, not fluent Mood: depressed, anxious Affect: constricted, inappropriate, congruent, anxious and slightly irritable Thought Process: illogical, linear Thought Content (Delusions): denies SI, HI, AVH, paranoia (she seems paranoid) Thought Content (Other): She was not observed to be responding to internal stimuli at this time Thought Content (Aggressive): none reported Perception (Hallucinations): none reported Perception (Other): none reported Cognition (Impairment of): memory, attention/concentration Cognition(Intelligence Est.): borderline Oriented: Awake, Alert Insight: poor Judgment: Poor Psychosis: Psychotic Perceptions Diagnoses 1. Unspecified psychotic disorder 2. R/O JHON 3. R/O Mood disorder ASSESSMENT: The patient says that her vision became worse at the moment she stepped int Interview Room 2. She keeps mumbling something that I can't understand because she is speaking in a very low volume and I requested if she could speak louder but she didn't. She seemed to be very anxious about sitting down. she was seen in the hallway standing close to safety representative since she left her room. I asked her if she felt scared but she denied it as she denied having paranoid thoughts. Patient was not in our system before, so, I will order a CT scan and a lipid profile MANAGEMENT PLAN: Continue with the current treatment plan TIME SPENT: 15 minutes. Vital Signs Vital Signs Date Time Temp Pulse Resp B/P (MAP) Pulse Ox O2 Delivery O2 Flow Rate FiO2 01/09/19 06:20 98.5 94 20 140/70 (93) 01/07/19 08:00 Room Air 01/03/19 17:05 99 Current Medications Current Medications Acetaminophen (Tylenol Tab) 650 mg Q6HP PRN PO HEADACHE or DISCOMFORT; Start 01/03/19 at 22:00 Al Hydrox/Mg Hydrox/Simethicone (Mylanta) 30 ml Q4HP PRN PO HEARTBURN/INDIGESTI ON Last administered on 01/04/19at 16:40; Start 01/03/19 at 22:00 Artificial Tears (Akwa Tears) 2 drop QIDP PRN OU DRY EYES Last administered on 01/08/19at 16:57; Start 01/08/19 at 13:15 Benztropine Mesylate (Cogentin) 0.5 mg BID PRN PO EXTRAPYRAMIDAL SIDE EFFECTS; Start 01/04/19 at 19:00 Ciprofloxacin (Cipro) 500 mg BID@,18 PO Last administered on 01/09/19at 06:16; Start 01/04/19 at 18:00 Home Med (Med Rec Complete!) ASDIRECTED XX ; Start 01/03/19 at 21:15; Stop 01/03/19 at 21:16; Status DC Lorazepam (Ativan) 0.5 mg TIDP PRN PO ANXIETY Last administered on 01/04/19at 09:21; Start 01/03/19 at 22:00 Magnesium Hydroxide (Milk Of Magnesia) 30 ml DAILYPRN PRN PO CONSTIPATION; Start 01/03/19 at 22:00 Paliperidone (Invega) 3 mg BID PO Last administered on 01/09/19at 08:18; Start 01/07/19 at 09:00 Paliperidone (Invega) 3 mg QHS PO Last administered on 01/06/19at 21:36; Start 01/04/19 at 21:00; Stop 01/07/19 at 10:10; Status DC Sertraline HCl (Zoloft) 100 mg DAILY PO Last administered on 01/09/19at 08:19; Start 01/04/19 at 09:00 Trazodone HCl (Desyrel) 50 mg QHSP PRN PO INSOMNIA Last administered on 01/03/19at 23:26; Start 01/03/19 at 22:00 Allergies Coded Allergies: Penicillins (Verified Allergy, Unknown, 01/03/19) pt unsure of allergy and is a poor historian JIMENEZ CHENEY MD January 09, 2019 16:46
[2019-01-09 17:14] LABS: CHOLESTEROL LEVEL 194 MG/DL (<200); CHOLESTEROL RISK RATIO 4.127 (<5); HDL CHOLESTEROL 47 MG/DL (>40); LDL CHOLESTEROL 94 MG/DL (<100); NON-HDL-C 147 MG/DL; TRIGLYCERIDES LEVEL 263 MG/DL (<150)
[2019-01-09 18:00] VITALS: BP 111/74
[2019-01-10] MEDS: CIPROFLOXACIN 500 MG TAB PO SCH (05:40)
[2019-01-10 06:44] VITALS: BP 104/64
[2019-01-10] MEDS: SERTRALINE 100 MG TAB PO SCH (08:33)
[2019-01-10] MEDS: PALIPERIDONE 3 MG ER TAB (INVEGA) PO SCH ×2 (08:33→21:00)
[2019-01-10 18:00] VITALS: BP 131/81
--- NOTE | 2019-01-10 18:48 | MHIPNPDOC ---
[facility] Progress Note Progress Note DATE OF SERVICE: 01/10/19 HISTORY: HISTORY: Patient is a 64 -year-old , female, who, as per ED report: "Pt presented with Gerard Jovel on a 9:57 pickup ordered by her PCP , because pt has been non-compliant with her medications, has a functional MR rating (per Siri) has been decompensating since Oct 2018, secluding herself, confused, "somebody keeps calling her phone, weird noises," Pt states she has been crying all the time, stays with other tenants "doesn't wish to be alone," pt says she does take her medications, denies being suicidal, or wishing to kill herself, birthday was yesterday on the , denies hearing voices, yet she seems to be responding to internal stimuli, talking to herself, or someone not in the room, paranoid about having to go to psyche and "they are not going to let me go home." Pt also stated her brother at age 47 killed himself with a shotgun to the head. Pt is very guarded in her presentation, tearful at times, not sure why she is here. Most of the information was gathered from pt's [facility] case management rn Flavio So [phone]. Siri stated also that the pt resides alone, has adult protective in the apartment, and is usually very independent, and siri has concerns for pt's safety as well as the Pt's PCP Jono" VITAL SIGNS: See below. NEW TEST RESULTS: See below CURRENT MEDICATIONS: See below. MENTAL STATUS EXAMINATION: General Appearance: Appropriate hygiene, ds/not appear stated age (looks older), hospital scrubs/clothing Build: average Demeanor: less mistrustful, less fidgety Eye Contact: Continues to be avoidant at times, very briefly, she is able to establish eye contact Activity: anxious Behavior: cooperative, but very anxious Speech: slow, low in volume, spontaneous, not fluent Mood: depressed, anxious Affect: constricted, congruent, anxious and depressed Thought Process: illogical, linear Thought Content (Delusions): denies SI, HI, AVH, paranoia (she seems paranoid) Thought Content (Other): She was not observed to be responding to internal stimuli at this time Thought Content (Aggressive): none reported Perception (Hallucinations): none reported Perception (Other): none reported Cognition (Impairment of): memory, attention/concentration Cognition(Intelligence Est.): borderline Oriented: Awake, Alert Insight: poor Judgment: Poor Psychosis: Psychotic Perceptions Diagnoses 1. Unspecified psychotic disorder 2. R/O JHON 3. R/O Mood disorder ASSESSMENT: The patient refused to go for her CT scan of the head yesterday and today she tells me she doesn't want to go. her Nurse told me that she didn't eat anything today at lunch time. she doesn't want to take Ativan on a schedule, she says she wants to take it PRN ( as she is supposed to take it but hasn't taken any in a out one week). She is able to tell me that she feels scared but can't tell me why. She denies hearing voices or having visual hallucinations. I have discontinued her Trazodone at night and instead, have started her on Seroquel, because this medication has a soothing effect and could help her feel relaxed. her Cogentin will be scheduled too. MANAGEMENT PLAN: discontinue Trazodone, start Seroquel 50 mgs PO QHS and start Cogentin 0.5 mgs PO BID scheduled TIME SPENT: 15 minutes. Vital Signs Vital Signs Date Time Temp Pulse Resp B/P (MAP) Pulse Ox O2 Delivery O2 Flow Rate FiO2 01/10/19 06:44 97.2 94 16 104/64 (77) 01/07/19 08:00 Room Air Current Medications Current Medications Acetaminophen (Tylenol Tab) 650 mg Q6HP PRN PO HEADACHE or DISCOMFORT; Start 01/03/19 at 22:00 Al Hydrox/Mg Hydrox/Simethicone (Mylanta) 30 ml Q4HP PRN PO HEARTBURN/INDIGESTION Last administered on 01/04/19at 16:40; Start 01/03/19 at 22:00 Artificial Tears (Akwa Tears) 2 drop QIDP PRN OU DRY EYES Last administered on 01/08/19at 16:57; Start 01/08/19 at 13:15 Benztropine Mesylate (Cogentin) 0.5 mg BID PRN PO EXTRAPYRAMIDAL SIDE EFFECTS; Start 01/04/19 at 19:00 Ciprofloxacin (Cipro) 500 mg BID@06,18 PO Last administered on 01/10/19at 05:40; Start 01/04/19 at 18:00; Stop 01/10/19 at 12:21; Status DC Home Med (Med Rec Complete!) ASDIRECTED XX ; Start 01/03/19 at 21:15; Stop 01/03/19 at 21:16; Status DC Lorazepam (Ativan) 0.5 mg TID PRN PO ANXIETY; Start 01/10/19 at 22:00; Stop 01/10/19 at 22:00; Status DC Lorazepam (Ativan) 0.5 mg TIDP PRN PO ANXIETY Last administered on 01/04/19at 09:21; Start 01/03/19 at 22:00; Stop 01/10/19 at 18:12; Status DC Lorazepam (Ativan) 1 mg TIDP PRN PO ANXIETY; Start 01/10/19 at 22:00 Magnesium Hydroxide (Milk Of Magnesia) 30 ml DAILYPRN PRN PO CONSTIPATION; Start 01/03/19 at 22:00 Miscellaneous (Unresolved Clarification Entry) SEE LABEL COMMENTS DAILY XX ; Start 01/10/19 at 09:00; Stop 01/10/19 at 12:16; Status DC Paliperidone (Invega) 3 mg BID PO ; Start 01/10/19 at 21:00; Status UNV Paliperidone (Invega) 3 mg BID PO Last administered on 01/10/19at 08:33; Start 01/07/19 at 09:00; Stop 01/10/19 at 18:29; Status DC Paliperidone (Invega) 3 mg QHS PO ; Start 01/10/19 at 21:00; Stop 01/10/19 at 21:00; Status DC Paliperidone (Invega) 3 mg QHS PO Last administered on 01/06/19at 21:36; Start 01/04/19 at 21:00; Stop 01/07/19 at 10:10; Status DC Sertraline HCl (Zoloft) 100 mg DAILY PO Last administered on 01/10/19at 08:33; Start 01/04/19 at 09:00 Trazodone HCl (Desyrel) 50 mg QHSP PRN PO INSOMNIA Last administered on 01/03/19at 23:26; Start 01/03/19 at 22:00; Stop 01/10/19 at 18:34; Status DC Allergies Coded Allergies: Penicillins (Verified Allergy, Unknown, 01/03/19) pt unsure of allergy and is a poor historian JIMENEZ CHENEY MD January 10, 2019 18:47
[2019-01-10] MEDS: LORazepam 1 MG TAB PO SCH (20:42)
[2019-01-10] MEDS: BENZTROPINE 0.5 MG TAB PO SCH (21:00)
[2019-01-10] MEDS: QUEtiapine FUMARATE 50 MG TAB PO SCH (21:00)
[2019-01-10] MEDS ORDERED: PALIPERIDONE 3 MG ER TAB (INVEGA) PO SCH (21:00)
[2019-01-10] MEDS ORDERED: LORazepam 1 MG TAB PO PRN (22:00)
[2019-01-10] MEDS ORDERED: LORazepam 0.5 MG TAB PO PRN (22:00)
[2019-01-11 06:42] VITALS: BP 150/79
[2019-01-11] MEDS: BENZTROPINE 0.5 MG TAB PO SCH ×2 (09:00→21:25)
[2019-01-11] MEDS: PALIPERIDONE 3 MG ER TAB (INVEGA) PO SCH ×2 (09:00→21:25)
[2019-01-11] MEDS: SERTRALINE 100 MG TAB PO SCH (09:43)
[2019-01-11] MEDS: LORazepam 1 MG TAB PO SCH ×3 (09:43→21:25)
[2019-01-11] MEDS ORDERED: IBUPROFEN 400 MG TAB PO PRN (12:15)
--- NOTE | 2019-01-11 13:58 | REP ---
LUMBAR SPINE SERIES: Five views. HISTORY: Injury in a fall. FINDINGS: Lumbar vertebral body heights are preserved. No fracture or collapse is seen. There is degenerative disc disease at each lumbar level. This is most pronounced at L2-3. There is degenerative sclerosis and spur formation on either side of the SI joints bilaterally. No sacral fracture is seen. Psoas margins are symmetric. There are surgical clips in the right upper quadrant consistent with previous cholecystectomy. At the bottom edge of the imaging field of view, there is irregularity of the lower sacrum and I cannot exclude a sacral or coccygeal fracture. Sacral and coccygeal radiographs are suggested. IMPRESSION: Degenerative disc disease most pronounced at L2-3. No lumbar spine fracture seen. There is sclerosis and spur formation on either side at the SI joints. Irregularity is seen on the lateral radiograph raising question of lower sacral or coccygeal fracture. Consider sacral coccygeal views. Electronically Signed by Merritt Monzon MD 01/11/2019 03:31 P
[2019-01-11] MEDS: NYSTATIN 100,000 UNITS/GM TOPICAL PWD 15 GM TOP SCH ×2 (14:07→21:25)
[2019-01-11 18:17] VITALS: BP 111/56
[2019-01-11] MEDS: QUEtiapine FUMARATE 50 MG TAB PO SCH (21:25)
[2019-01-12 06:35] VITALS: BP 131/92
--- NOTE | 2019-01-12 08:05 | REP ---
CT STUDY LEFT LEG WITHOUT CONTRAST: HISTORY: Two separate falls in the last [address] FINDINGS: There is a normal fabella posteriorly at the knee. A benign bone island is seen in the medial femoral condyle. There is no bony erosive change or fracture. There is mild patellar osteoarthritic spurring. There is no significant joint effusion. There is no evidence of muscle tear. IMPRESSION: No traumatic abnormality noted. Mild osteoarthritis at the knee involving the patellofemoral compartment. Otherwise negative. Electronically Signed by Merritt Monzon MD 01/12/2019 09:20 A
--- NOTE | 2019-01-12 08:08 | REP ---
CT PELVIS WITHOUT CONTRAST: HISTORY: Two falls within the last [address] FINDINGS: Bony pelvic ring is intact. There is sclerosis on both sides of the SI joints bilaterally, and there is sclerosis on either side of the symphysis pubis. These changes are degenerative. No sacral or coccygeal fracture is seen. No acute pelvic fracture is noted. There is subtle buckling of the inferior pubic ramus on the right. There is no adjacent soft tissue swelling, and this is most likely an old finding. No hip fracture is appreciated. There is mild bilateral acetabular spurring, left a little more so than right. IMPRESSION: Osteoarthritic changes at the SI joints with reactive sclerosis on both sides of the SI joints and bilaterally on either side of the symphysis pubis. Mild bilateral hip joint osteoarthritic spurring. No acute traumatic abnormality. There is a uterine fibroid projecting from the posterior aspect of the uterine fundus. This measures 5.1 cm in diameter. Left colonic diverticulosis is noted. Electronically Signed by Merritt Monzon MD 01/12/2019 09:20 A
--- NOTE | 2019-01-12 08:09 | REP ---
CT LUMBAR SPINE WITHOUT CONTRAST: HISTORY: History of two falls. FINDINGS: Lumbar vertebral body heights are preserved. Alignment is normal. No fracture or collapse is seen. There are degenerative spondylosis changes. Degenerative disc changes are most pronounced at L2-3 where there is prominent bilateral osteophyte formation and sclerosis and disc space narrowing. No bony destructive lesion or collapse. There is evidence of a unilateral left-sided L5 spondylolysis without spondylolisthesis. This is chronic. No acute fracture is seen. IMPRESSION: Degenerative spondylosis changes. Unilateral left L5 spondylolysis. No spondylolisthesis. No acute bony abnormality. Electronically Signed by Merritt Monzon MD 01/12/2019 09:21 A
[2019-01-12] MEDS: LORazepam 1 MG TAB PO SCH ×3 (09:40→20:46)
[2019-01-12] MEDS: SERTRALINE 100 MG TAB PO SCH (09:40)
[2019-01-12] MEDS: NYSTATIN 100,000 UNITS/GM TOPICAL PWD 15 GM TOP SCH ×2 (09:40→20:58)
[2019-01-12] MEDS: PALIPERIDONE 3 MG ER TAB (INVEGA) PO SCH ×2 (09:40→20:46)
[2019-01-12] MEDS: BENZTROPINE 0.5 MG TAB PO SCH ×2 (09:40→20:46)
[2019-01-12 17:32] VITALS: BP 133/92
[2019-01-12] MEDS: QUEtiapine FUMARATE 50 MG TAB PO SCH (20:46)
[2019-01-12 22:30] VITALS: BP 128/84
[2019-01-12 23:00] VITALS: BP 149/67
[2019-01-12] MEDS ORDERED: ONDANSETRON 4 MG ORAL DISINTEGRATING TAB (Q0162 PER 1MG) SL PRN (23:15)
[2019-01-13 06:30] VITALS: BP 116/56
[2019-01-13] MEDS: LORazepam 1 MG TAB PO SCH (09:00)
[2019-01-13] MEDS: SERTRALINE 100 MG TAB PO SCH (10:38)
[2019-01-13] MEDS: PALIPERIDONE 3 MG ER TAB (INVEGA) PO SCH ×2 (10:38→21:53)
[2019-01-13] MEDS: BENZTROPINE 0.5 MG TAB PO SCH ×2 (10:38→21:53)
[2019-01-13] MEDS: NYSTATIN 100,000 UNITS/GM TOPICAL PWD 15 GM TOP SCH ×2 (10:39→21:00)
[2019-01-13] MEDS: LORazepam 0.5 MG TAB PO SCH ×3 (10:47→21:53)
--- NOTE | 2019-01-13 17:10 | MHIPNPDOC ---
[facility] Progress Note Progress Note DATE OF SERVICE: 01/13/19 HISTORY: HISTORY: Patient is a 64 -year-old , female, who, as per ED report: "Pt presented with Gerard Jovel on a 9:57 pickup ordered by her PCP , because pt has been non-compliant with her medications, has a functional MR rating (per Siri) has been decompensating since Oct 2018, secluding herself, confused, "somebody keeps calling her phone, weird noises," Pt states she has been crying all the time, stays with other tenants "doesn't wish to be alone," pt says she does take her medications, denies being suicidal, or wishing to kill herself, birthday was yesterday on the , denies hearing voices, yet she seems to be responding to internal stimuli, talking to herself, or someone not in the room, paranoid about having to go to psyche and "they are not going to let me go home." Pt also stated her brother at age 47 killed himself with a shotgun to the head. Pt is very guarded in her presentation, tearful at times, not sure why she is here. Most of the information was gathered from pt's [facility] housing case manager Flavio So [phone]. Siri stated also that the pt resides alone, has adult protective in the apartment, and is usually very independent, and siri has concerns for pt's safety as well as the Pt's PCP Jono" VITAL SIGNS: See below. NEW TEST RESULTS: See below CURRENT MEDICATIONS: See below. MENTAL STATUS EXAMINATION: General Appearance: Appropriate hygiene, ds/not appear stated age (looks older), hospital scrubs/clothing Build: average Demeanor: less anxious, less mistrustful, more cooperative Eye Contact: is improving Activity: anxious Behavior: cooperative, less anxious Speech: her speech is improving, it is less slow, less slurred, the volume is not that low, tone is normal, more spontaneous and more fluent Mood: "I've been sad because my sister doesn't want to talk to me" Affect: Continues to be constricted but she is less anxious, although she continues to be depressed (less) Thought Process: linear, more coherent Thought Content (Delusions): denies SI, HI, AVH, she seems less paranoid Thought Content (Other): She was not observed to be responding to internal stimuli at this time Thought Content (Aggressive): none reported Perception (Hallucinations): none reported Perception (Other): none reported Cognition (Impairment of): memory, attention/concentration Cognition(Intelligence Est.): borderline Oriented: Awake, Alert Insight: poor Judgment: Poor Psychosis: Psychotic Perceptions Diagnoses 1. Unspecified psychotic disorder 2. R/O JHON 3. R/O Mood disorder ASSESSMENT: The patient fell over the weekend, apparently she was found sitting on the floor and she was taken to different imaging studies. All of them were negative. Today the patient is less depressed, more interactive. she tells me that the laringitis that was affecting her is going away. She never complained of laryngitis, she semed to have troulbe speaking but it could have been secondary to EPS and maybe taking Ativan and benztropine has helped her recover. It could be that she was catatonic. She says that she will continue to take her Zoloft, Ativan, Seroquel, cogentin and Ativan. she says she will accept Invega sustenna, this investment underwriter will order Invega Sustenna 156 mgs IM for the 1st dose, since she is 64 and kidney function is usually less effective at that age. MANAGEMENT PLAN: discontinue Trazodone, start Seroquel 50 mgs PO QHS and start Cogentin 0.5 mgs PO BID scheduled will continue Ativan at 0.5 mgs PO TID, she has responded well to it (thought she was catatonic and she is improving) TIME SPENT: 15 minutes Vital Signs Vital Signs Date Time Temp Pulse Resp B/P (MAP) Pulse Ox O2 Delivery O2 Flow Rate FiO2 01/13/19 06:30 98.4 74 16 116/56 (76) 01/12/19 23:00 94 01/07/19 08:00 Room Air Current Medications Current Medications Acetaminophen (Tylenol Tab) 650 mg Q6HP PRN PO HEADACHE or DISCOMFORT Last administered on 01/11/19at 11:19; Start 01/03/19 at 22:00 Al Hydrox/Mg Hydrox/Simethicone (Mylanta) 30 ml Q4HP PRN PO HEARTBURN/INDIGESTION Last administered on 01/04/19 16:40; Start 01/03/19 at 22:00 Artificial Tears (Akwa Tears) 2 drop QIDP PRN OU DRY EYES Last administered on 01/08/19 16:57; Start 01/08/19 at 13:15 Benztropine Mesylate (Cogentin) 0.5 mg BID PO Last administered on 01/13/19 10:38; Start 01/10/19 at 21:00 Benztropine Mesylate (Cogentin) 0.5 mg BID PRN PO EXTRAPYRAMIDAL SIDE EFFECTS; Start 01/04/19 at 19:00; Stop 01/10/19 at 18:46; Status DC Ciprofloxacin (Cipro) 500 mg BID@ PO Last administered on 01/10/19 05:40; Start 01/04/19 at 18:00; Stop 01/10/19 at 12:21; Status DC Home Med (Med Rec Complete!) ASDIRECTED XX ; Start 01/03/19 at 21:15; Stop 01/03/19 at 21:16; Status DC Ibuprofen (Advil) 400 mg Q6HP PRN PO PAIN Last administered on 01/12/19 20:56; Start 01/11/19 at 12:15 Lorazepam (Ativan) 0.5 mg TID PO Last administered on 01/13/19 15:38; Start 01/13/19 at 09:00 Lorazepam (Ativan) 0.5 mg TID PRN PO ANXIETY; Start 01/10/19 at 22:00; Stop 01/10/19 at 22:00; Status DC Lorazepam (Ativan) 0.5 mg TIDP PRN PO ANXIETY Last administered on 01/04/19 09:21; Start 01/03/19 at 22:00; Stop 01/10/19 at 18:12; Status DC Lorazepam (Ativan) 1 mg TID PO Last administered on 01/12/19 20:46; Start 01/10/19 at 21:00; Stop 01/13/19 at 10:37; Status DC Lorazepam (Ativan) 1 mg TIDP PRN PO ANXIETY; Start 01/10/19 at 22:00; Stop 01/10/19 at 22:00; Status DC Magnesium Hydroxide (Milk Of Magnesia) 30 ml DAILYPRN PRN PO CONSTIPATION; St art 01/03/19 at 22:00 Miscellaneous (Unresolved Clarification Entry) SEE LABEL COMMENTS DAILY XX ; Start 01/10/19 at 09:00; Stop 01/10/19 at 12:16; Status DC Nystatin (Mycostatin Powder, Nystop) UNDER BREASTS BID TOP Last administered on 01/13/19at 10:39; Start 01/11/19 at 09:00 Ondansetron HCl (Zofran Odt) 4 mg Q3HP PRN SL NAUSEA OR VOMITING; Start 01/12/19 at 23:15 Paliperidone (Invega) 3 mg BID PO Last administered on 01/13/19at 10:38; Start 01/10/19 at 21:00 Paliperidone (Invega) 3 mg BID PO Last administered on 01/10/19at 08:33; Start 01/07/19 at 09:00; Stop 01/10/19 at 18:29; Status DC Paliperidone (Invega) 3 mg QHS PO ; Start 01/10/19 at 21:00; Stop 01/10/19 at 21:00; Status DC Paliperidone (Invega) 3 mg QHS PO Last administered on 01/06/19at 21:36; Start 01/04/19 at 21:00; Stop 01/07/19 at 10:10; Status DC Quetiapine Fumarate (SEROquel) 50 mg QHS PO Last administered on 01/12/19at 20:46; Start 01/10/19 at 21:00 Sertraline HCl (Zoloft) 100 mg DAILY PO Last administered on 01/13/19at 10:38; Start 01/04/19 at 09:00 Trazodone HCl (Desyrel) 50 mg QHSP PRN PO INSOMNIA Last administered on 01/03/19at 23:26; Start 01/03/19 at 22:00; Stop 01/10/19 at 18:34; Status DC Allergies Coded Allergies: Penicillins (Verified Allergy, Unknown, 01/03/19) pt unsure of allergy and is a poor historian JIMENEZ CHENEY MD January 13, 2019 16:55
[2019-01-13 18:00] VITALS: BP 120/63
[2019-01-13] MEDS ORDERED: PALIPERIDONE PALMITATE 156MG/1ML INJ(INVEGA)(J2426)(FREE PSY INPT ONLY) IM ONE (18:00)
[2019-01-13] MEDS: QUEtiapine FUMARATE 50 MG TAB PO SCH (21:53)
[2019-01-14 06:37] VITALS: BP 131/88
[2019-01-14] MEDS: BENZTROPINE 0.5 MG TAB PO SCH ×2 (08:17→21:33)
[2019-01-14] MEDS: LORazepam 0.5 MG TAB PO SCH ×3 (08:17→21:33)
[2019-01-14] MEDS: PALIPERIDONE 3 MG ER TAB (INVEGA) PO SCH ×2 (08:17→21:33)
[2019-01-14] MEDS: SERTRALINE 100 MG TAB PO SCH (08:17)
[2019-01-14] MEDS: NYSTATIN 100,000 UNITS/GM TOPICAL PWD 15 GM TOP SCH ×2 (09:28→21:33)
[2019-01-14 18:00] VITALS: BP 108/67
--- NOTE | 2019-01-14 19:29 | MHIPNPDOC ---
A-FIB/CHADSVASC A-FIB History Current/History of A-Fib/PAF?: No Current Oral Anticoagulant The: No Age/Risk Factor Scoring CHADSVASC: CHADSVASC Response (Comments) Value Age Risk Factor Age 65-74 years old 1 Gender Risk Factor Female 1 Hx of CHF No 0 Hx of HTN No 0 Hx of Stroke/TIA/or VTE No 0 Hx of Diabetes No 0 Hx of Vascular Disease No 0 Total 2 Treatment Treatment ordered: NONE Reason Anticoagulant not given: Not indicated/[id number] JIMENEZ CHENEY MD January 14, 2019 19:29
[2019-01-14] MEDS: QUEtiapine FUMARATE 50 MG TAB PO SCH (21:33)
[2019-01-15 06:08] VITALS: BP 167/86
[2019-01-15] MEDS: LORazepam 0.5 MG TAB PO SCH (09:00)
--- NOTE | 2019-01-15 09:03 | REP ---
Bilateral ribs four views: No rib fractures or other rib abnormalities are identified: Chest, single AP view, the patient supine: There are no comparisons. Supine positioning decreases sensitivity for pneumothorax. No pneumothorax is identified. No hemothorax or pulmonary contusion are identified. There is a left shoulder arthroplasty. There is right humeral head/neck deformity suggestive of fracture, age indeterminate. Electronically Signed by Warren Alvarez MD 01/15/2019 08:54 A
[2019-01-15] MEDS: BENZTROPINE 0.5 MG TAB PO SCH (09:09)
[2019-01-15] MEDS: SERTRALINE 100 MG TAB PO SCH (09:09)
[2019-01-15] MEDS: PALIPERIDONE 3 MG ER TAB (INVEGA) PO SCH (09:09)
--- NOTE | 2019-01-15 09:47 | REP ---
BILATERAL HIPS, FOUR VIEWS: HISTORY: Fall. RIGHT HIP: There is no acute fracture or dislocation. There is minimal narrowing of the joint space with associated sclerosis. IMPRESSION: There is no acute fracture or dislocation. LEFT HIP: There is no acute fracture or dislocation. There is minimal narrowing of the joint space with associated sclerosis. IMPRESSION: There is no acute fracture or dislocation. Electronically Signed by Will Hernandez MD 01/15/2019 09:49 A
--- NOTE | 2019-01-15 09:50 | REP ---
BILATERAL TIBIA/FIBULA, FOUR VIEWS: HISTORY: Fall. RIGHT TIBIA/FIBULA: There is no acute fracture or dislocation. The joint spaces are normal in appearance. IMPRESSION: There is no acute fracture or dislocation. LEFT TIBIA/FIBULA: There is no acute fracture or dislocation. The joint spaces are normal in appearance. IMPRESSION: There is no acute fracture or dislocation. Electronically Signed by Will Hernandez MD 01/15/2019 10:00 A
[2019-01-15] MEDS: NYSTATIN 100,000 UNITS/GM TOPICAL PWD 15 GM TOP SCH (10:35)
[2019-01-15] MEDS ORDERED: LIQU1.4S OU (13:06)
[2019-01-15] MEDS ORDERED: QUET5TAB PO (13:06)
[2019-01-15] MEDS ORDERED: LORA0.5T11 PO (13:06)
[2019-01-15] MEDS ORDERED: SERT-138 PO (13:06)
[2019-01-15] MEDS ORDERED: ZYPR5TAB2 PO (13:06)
[2019-01-15] MEDS ORDERED: BENZ0.5T PO (13:06)
[2019-01-15] MEDS ORDERED: NYAM10003 TOP (13:06)
[2019-01-15] MEDS ORDERED: INVE156I IM (13:11)
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
--- NOTE | 2019-01-18 22:37 | MHIPNPDOC ---
[facility] Progress Note Progress Note DATE OF SERVICE: 01/14/19 HISTORY: HISTORY: Patient is a 64 -year-old , female, who, as per ED report: "Pt presented with Gerard Jovel on a 9:57 pickup ordered by her PCP , because pt has been non-compliant with her medications, has a functional MR rating (per Siri) has been decompensating since Oct 2018, secluding herself, confused, "somebody keeps calling her phone, weird noises," Pt states she has been crying all the time, stays with other tenants "doesn't wish to be alone," pt says she does take her medications, denies being suicidal, or wishing to kill herself, birthday was yesterday on the , denies hearing voices, yet she seems to be responding to internal stimuli, talking to herself, or someone not in the room, paranoid about having to go to [facility] and "they are not going to let me go home." Pt also stated her brother at age 47 killed himself with a shotgun to the head. Pt is very guarded in her presentation, tearful at times, not sure why she is here. Most of the information was gathered from pt's [facility] continuous pillowcase cutter Flavio So [phone]. Siri stated also that the pt resides alone, has adult protective in the apartment, and is usually very independent, and siri has concerns for pt's safety as well as the Pt's PCP Jono" VITAL SIGNS: See below. NEW TEST RESULTS: See below CURRENT MEDICATIONS: See below. MENTAL STATUS EXAMINATION: General Appearance: Appropriate hygiene, ds/not appear stated age (looks older), hospital scrubs/clothing Build: average Demeanor: less anxious, less mistrustful, more cooperative Eye Contact: is improving Activity: anxious Behavior: cooperative, less anxious Speech: her speech is improving, it is less slow, less slurred, the volume is not that low, tone is normal, more spontaneous and more fluent Mood: "I've been sad because my sister doesn't want to talk to me" Affect: Continues to be constricted but she is less anxious, although she continues to be depressed (less) Thought Process: linear, more coherent Thought Content (Delusions): denies SI, HI, AVH, she seems less paranoid Thought Content (Other): She was not observed to be responding to internal stimuli at this time Thought Content (Aggressive): none reported Perception (Hallucinations): none reported Perception (Other): none reported Cognition (Impairment of): memory, attention/concentration Cognition(Intelligence Est.): borderline Oriented: Awake, Alert Insight: poor Judgment: Poor Psychosis: Psychotic Perceptions Diagnoses 1. Unspecified psychotic disorder, R/O Schizoaffective d/o 2. R/O JHON 3. R/O Mood disorder ASSESSMENT: The patient receive her Invega Sustenna injection yesterday. She did not develop side effects to the medication. This fiction and nonfiction prose writer decided to give her 156 mgs because at her age, her kidney function starts to decline and din't want to overload her with medication. She is having a good response to medication. MANAGEMENT PLAN: Will continue with current treatment plan. TIME SPENT: 15 MINUTES Vital Signs Vital Signs Date Time Temp Pulse Resp B/P (MAP) Pulse Ox O2 Delivery O2 Flow Rate FiO2 01/15/19 06:08 98.1 98 18 167/86 (113) 97 Current Medications Current Medications Acetaminophen (Tylenol Tab) 650 mg Q6HP PRN PO HEADACHE or DISCOMFORT Last administered on 01/11/19at 11:19; Start 01/03/19 at 22:00; Stop 01/15/19 at 14:28; Status DC Al Hydrox/Mg Hydrox/Simethicone (Mylanta) 30 ml Q4HP PRN PO HEARTBURN/INDIGESTION Last administered on 01/04/19at 16:40; Start 01/03/19 at 22:00; Stop 01/15/19 at 14:28; Status DC Artificial Tears (Akwa Tears) 2 drop QIDP PRN OU DRY EYES Last administered on 01/08/19at 16:57; Start 01/08/19 at 13:15; Stop 01/15/19 at 14:28; Status DC Benztropine Mesylate (Cogentin) 0.5 mg BID PO Last administered on 01/15/19at 09:09; Start 01/10/19 at 21:00; Stop 01/15/19 at 14:28; Status DC Benztropine Mesylate (Cogentin) 0.5 mg BID PRN PO EXTRAPYRAMIDAL SIDE EFFECTS; Start 01/04/19 at 19:00; Stop 01/10/19 at 18:46; Status DC Ciprofloxacin (Cipro) 500 mg BID@,18 PO Last administered on 01/10/19at 05:40; Start 01/04/19 at 18:00; Stop 01/10/19 at 12:21; Status DC Home Med (Med Rec Complete!) ASDIRECTED XX ; Start 01/03/19 at 21:15; Stop 01/03/19 at 21:16; Status DC Ibuprofen (Advil) 400 mg Q6HP PRN PO PAIN Last administered on 01/12/19at 20:56; Start 01/11/19 at 12:15; Stop 01/15/19 at 14:28; Status DC Lorazepam (Ativan) 0.5 mg TID PO Last administered on 01/14/19at 21:33; Start 01/13/19 at 09:00; Stop 01/15/19 at 14:28; Status DC Lorazepam (Ativan) 0.5 mg TID PRN PO ANXIETY; Start 01/10/19 at 22:00; Stop 01/10/19 at 22:00; Status DC Lorazepam (Ativan) 0.5 mg TIDP PRN PO ANXIETY Last administered on 01/04/19at 09:21; Start 01/03/19 at 22:00; Stop 01/10/19 at 18:12; Status DC Lorazepam (Ativan) 1 mg TID PO Last administered on 01/12/19at 20:46; Start 01/10/19 at 21:00; Stop 01/13/19 at 10:37; Status DC Lorazepam (Ativan) 1 mg TIDP PRN PO ANXIETY; Start 01/10/19 at 22:00; Stop 01/10/19 at 22:00; Status DC Magnesium Hydroxide (Milk Of Magnesia) 30 ml DAILYPRN PRN PO CONSTIPATION; Start 01/03/19 at 22:00; Stop 01/15/19 at 14:28; Status DC Miscellaneous (Unresolved Clarification Entry) SEE LABEL COMMENTS DAILY XX ; Start 01/10/19 at 09:00; Stop 01/10/19 at 12:16; Status DC Nystatin (Mycostatin Powder, Nystop) UNDER BREASTS BID TOP Last administered on 01/15/19at 10:35; Start 01/11/19 at 09:00; Stop 01/15/19 at 14:28; Status DC Ondansetron HCl (Zofran Odt) 4 mg Q3HP PRN SL NAUSEA OR VOMITING; Start 01/12/19 at 23:15; Stop 01/15/19 at 14:28; Status DC Paliperidone (Invega) 3 mg BID PO Last administered on 01/15/19at 09:09; Start 01/10/19 at 21:00; Stop 01/15/19 at 14:28; Status DC Paliperidone (Invega) 3 mg BID PO Last administered on 01/10/19at 08:33; Start 01/07/19 at 09:00; Stop 01/10/19 at 18:29; Status DC Paliperidone (Invega) 3 mg QHS PO ; Start 01/10/19 at 21:00; Stop 01/10/19 at 21:00; Status DC Paliperidone (Invega) 3 mg QHS PO Last administered on 01/06/19at 21:36; Start 01/04/19 at 21:00; Stop 01/07/19 at 10:10; Status DC Quetiapine Fumarate (SEROquel) 50 mg QHS PO Last administered on 01/14/19at 21:33; Start 01/10/19 at 21:00; Stop 01/15/19 at 14:28; Status DC Sertraline HCl (Zoloft) 100 mg DAILY PO Last administered on 01/15/19 09:09; Start 01/04/19 at 09:00; Stop 01/15/19 at 14:28; Status DC Trazodone HCl (Desyrel) 50 mg QHSP PRN PO INSOMNIA Last administered on 01/03/19at 23:26; Start 01/03/19 at 22:00; Stop 01/10/19 at 18:34; Status DC Allergies Coded Allergies: Penicillins (Verified Allergy, Unknown, 01/03/19) pt unsure of allergy and is a poor historian A-FIB/CHADSVASC A-FIB History Current/History of A-Fib/PAF?: No Current Oral Anticoagulant The: No Age/Risk Factor Scoring CHADSVASC: CHADSVASC Response (Comments) Value Age Risk Factor Age 65-74 years old 1 Gender Risk Factor Female 1 Hx of CHF No 0 Hx of HTN No 0 Hx of Stroke/TIA/or VTE No 0 Hx of Diabetes No 0 Hx of Vascular Disease No 0 Total 2 Treatment Treatment ordered: NONE Reason Anticoagulant not given: Not indicated/[id number] JIMENEZ CHENEY MD January 18, 2019 22:37
== END 2019-01-15 14:05 | disposition home or self-care (01) | DRG 885 ==
LOC: M ED 17:03 → M ED INP 21:49 → M PSY 22:54
PROVIDERS: ADMIT Psychiatry & Neurology Psychiatry; ATTEND Psychiatry & Neurology Psychiatry
DX: F25.9 Schizoaffective disorder, unspecified (principal); F41.1 Generalized anxiety disorder; F39 Unspecified mood [affective] disorder; Z79.899 Other long term (current) drug therapy; Z88.0 Allergy status to penicillin; E66.9 Obesity, unspecified

== ENCOUNTER 2024-11-26 13:51 | Inpatient (IN) | payer MEDICARE, MEDICAID ==
[~2024-11-26] VITALS: Ht 149.9 cm; Wt 75.2 kg
[~2024-11-26 13:51] MED LIST changes: +BENZ0.5T2 PO; +INVE156I IM; +LIQU1.4S OU; -LORA0.5T11 PO; +LORA0.5T5 PO; +NYAM10003 TOP; +PATIENT COMMENTS; +QUET50TA4 PO; +SERT-138 PO; +ZYPR5TAB2 PO
[2024-11-26 15:21] LABS: HEMATOCRIT 37.7 % (36.0-47.0); HEMOGLOBIN 12.3 g/dl (12.0-15.5); MEAN CORPUSCULAR HEMOGLOBIN 29.1 pg (27.0-33.0); MEAN CORPUSCULAR HGB CONC 32.6 g/dl (32.0-36.5); MEAN CORPUSCULAR VOLUME 89.1 fl (80.0-96.0); PLATELET COUNT, AUTOMATED 296 10^3/uL (150-450); RED BLOOD COUNT 4.23 10^6/uL (4.00-5.40); WHITE BLOOD COUNT 8.2 10^3/uL (4.0-10.0)
[2024-11-26 15:46] LABS: AMPHETAMINES LEVEL URINE NEGATIVE (NEGATIVE); BARBITURATES URINE NEGATIVE (NEGATIVE); BENZODIAZEPINES URINE NEGATIVE (NEGATIVE); CANNABINOIDS URINE NEGATIVE (NEGATIVE); COCAINE METABOLITE URINE NEGATIVE (NEGATIVE); METHADONE URINE NEGATIVE (NEGATIVE); OPIATES URINE NEGATIVE (NEGATIVE); PHENCYCLIDINE URINE NEGATIVE (NEGATIVE)
[2024-11-26 15:49] LABS: ETHYL ALCOHOL (ETHANOL) < 0.003 % (0.000-0.010)
[2024-11-26 15:51] LABS: ALBUMIN 3.7 G/DL (3.2-5.2); ALKALINE PHOSPHATASE 81 U/L (35-104); ALT/SGPT 31 U/L (7.0-40); AST/SGOT 38 U/L (<34); BILIRUBIN,DIRECT 0.2 MG/DL (<0.4); BILIRUBIN,TOTAL 0.5 MG/DL (0.3-1.2); BLOOD UREA NITROGEN 11 MG/DL (9-23); CALCIUM LEVEL 9.1 MG/DL (8.3-10.6); CARBON DIOXIDE LEVEL 26 MMOL/L (20-31); CHLORIDE LEVEL 103 MMOL/L (98-107); CREATININE FOR GFR 0.96 MG/DL (0.55-1.30); GLOMERULAR FILTRATION RATE > 60.0 (>39); GLUCOSE, FASTING 96 MG/DL (74-106); POTASSIUM SERUM 3.8 MMOL/L (3.5-5.1); SALICYLATE LEVEL < 3.0 MG/DL (<30); SODIUM LEVEL 139 MMOL/L (136-145); TOTAL PROTEIN 6.7 G/DL (5.7-8.2)
[2024-11-26 15:52] LABS: THYROID STIMULATING HORMONE 4.827 uIU/ML (0.55-4.78)
[2024-11-26] MEDS ORDERED: DONE5TAB82 PO (15:58)
[2024-11-26] MEDS ORDERED: PRAV20TA2 PO (15:58)
[2024-11-26] MEDS ORDERED: PANT40TA29 PO (15:58)
[2024-11-26] MEDS ORDERED: FERR32TA PO (15:58)
[2024-11-26] MEDS ORDERED: BENZ1TAB5 PO (15:58)
[2024-11-26] MEDS ORDERED: ZOLO100T PO (15:58)
[2024-11-26] MEDS ORDERED: SUCR1TAB56 PO (15:58)
[2024-11-26] MEDS ORDERED: BUME0.5T2 PO (15:58)
[2024-11-26] MEDS ORDERED: MULT-90 PO (15:58)
[2024-11-26] MEDS ORDERED: QUET100T2 PO (15:58)
[2024-11-26] MEDS ORDERED: LORA-1041 PO (15:58)
[2024-11-26] MEDS ORDERED: ATIV1TAB10 PO (15:58)
[2024-11-26] MEDS ORDERED: HOME MED LIST COMPLETE! XX SCH (16:00)
[2024-11-26] MEDS ORDERED: ACETAMINOPHEN 325 MG TAB PO PRN (18:00)
[2024-11-26] MEDS ORDERED: MAALOX 30 ML SUSP *UDC PO PRN ×2 (18:00)
[2024-11-26] MEDS ORDERED: diphenhydrAMINE 25MG CAP PO PRN (18:00)
[2024-11-26] MEDS ORDERED: OLANZapine ORAL DISINTEGRATING TAB 5MG PO PRN ×2 (18:00)
[2024-11-26] MEDS ORDERED: IBUPROFEN 400MG TAB PO PRN ×2 (18:00)
[2024-11-26] MEDS ORDERED: MOM 30ML SUSPENSION UDC PO PRN ×2 (18:00)
[2024-11-26] MEDS ORDERED: traZODone 50 MG TAB PO PRN (18:00)
[2024-11-26 21:55] VITALS: BP 133/84; TEMP 97.5; O2SAT 97
[2024-11-27 06:40] VITALS: BP 134/71; TEMP 97.6; O2SAT 100
[2024-11-27] MEDS: BUMETANIDE 1 MG TAB PO SCH (13:50)
[2024-11-27] MEDS: PILL CUTTER 1 EACH XX PRN (13:50)
[2024-11-27] MEDS: FERROUS GLUCONATE 324 MG TAB PO SCH (13:50)
[2024-11-27] MEDS: SUCRALFATE 1 GM TAB PO SCH (13:50)
[2024-11-27] MEDS: PRAVASTATIN 20 MG TAB PO SCH (13:50)
[2024-11-27] MEDS: PANTOPRAZOLE 40MG TAB (PROTONIX) PO SCH (13:51)
[2024-11-27] MEDS: DONEPEZIL 5 MG TAB PO SCH (13:51)
[2024-11-27 14:51] VITALS: BP 143/66; TEMP 97.5; O2SAT 96
[2024-11-27] MEDS: diphenhydrAMINE CREAM 30GM TOP SCH (20:29)
[2024-11-27] MEDS: BACITRACIN OINTMENT 30GM TUBE TOP SCH (22:27)
[2024-11-27 22:59] LABS: KETONE, URINE AUTO RFX NEGATIVE (NEGATIVE); MUCUS, URINE RFX SMALL (NEGATIVE); NITRITE, URINE AUTO RFX NEGATIVE (NEGATIVE); RBC, URINE AUTO RFX 3 /HPF (0-3); SQUAM EPITHELIAL CELL UR AURFX 1 /HPF (0-6); WBC, URINE AUTO RFX 4 /HPF (0-3)
[2024-11-27 23:21] LABS: LEUKOCYTE ESTERASE UR AUTO RFX 3+ (NEGATIVE)
[2024-11-28 06:31] VITALS: BP 136/63; TEMP 96.8; O2SAT 98
[2024-11-28] MEDS ORDERED: LORazepam 0.5 MG TAB PO PRN (09:10)
[2024-11-28] MEDS: LORATADINE 10 MG TAB PO SCH (09:43)
[2024-11-28] MEDS: QUEtiapine FUMARATE 100 MG TAB PO SCH (09:43)
[2024-11-28] MEDS: SERTRALINE 100 MG TAB PO SCH (09:43)
[2024-11-28] MEDS: BENZTROPINE 1 MG TAB PO SCH (09:43)
[2024-11-28] MEDS: MULTIVITAMINS/MINERALS THERAP 1 TAB PO SCH (09:43)
[2024-11-28 15:44] VITALS: BP 137/68; TEMP 97.5; O2SAT 99
[2024-11-29 06:19] VITALS: BP 150/75; TEMP 97.3; O2SAT 99
[2024-11-29 15:48] VITALS: BP 131/73; TEMP 97.6; O2SAT 100
[2024-11-30 06:20] VITALS: BP 140/80; TEMP 97; O2SAT 99
[2024-11-30] MEDS: ACETAMINOPHEN 325 MG TAB PO PRN (13:12)
[2024-11-30 14:44] VITALS: BP 124/72; TEMP 98; O2SAT 97
[2024-11-30] MEDS: traZODone 50 MG TAB PO PRN (20:09)
[2024-11-30] MEDS: diphenhydrAMINE 25MG CAP PO PRN (20:09)
[2024-11-30 23:24] LABS: KETONE, URINE AUTO RFX NEGATIVE (NEGATIVE); MUCUS, URINE RFX SMALL (NEGATIVE); NITRITE, URINE AUTO RFX NEGATIVE (NEGATIVE); RBC, URINE AUTO RFX 3 /HPF (0-3); SQUAM EPITHELIAL CELL UR AURFX 2 /HPF (0-6); TRANSITIONAL EPITHELIAL AU RFX <1 /HPF; WBC, URINE AUTO RFX 2 /HPF (0-3)
[2024-11-30 23:59] LABS: LEUKOCYTE ESTERASE UR AUTO RFX TRACE (NEGATIVE)
[2024-12-01 06:27] VITALS: BP 156/88; TEMP 97.2; O2SAT 100
[2024-12-01 15:40] VITALS: BP 122/59; TEMP 96.4; O2SAT 89
[2024-12-02 06:48] VITALS: BP 148/86; TEMP 96.9; O2SAT 100
[2024-12-02 15:38] VITALS: BP 105/58; TEMP 97.4; O2SAT 97
[2024-12-03] MEDS ORDERED: QUET100T2 PO (06:07)
[2024-12-03] MEDS ORDERED: ZOLO100T PO (06:07)
[2024-12-03] MEDS ORDERED: BACI50OI TOP (06:07)
[2024-12-03] MEDS ORDERED: DONE5TAB82 PO (06:07)
[2024-12-03] MEDS ORDERED: BENZ1TAB5 PO (06:07)
[2024-12-03 06:32] VITALS: BP 119/74; TEMP 97.2; O2SAT 97
[2024-12-03] MEDS ORDERED: NYST1POW3 TOP (09:50)
== END 2024-12-03 12:32 | disposition home or self-care (01) | DRG 880 ==
LOC: M ED 13:51 → EDBD 13:51 → M ED INP 18:00 → M PSY 21:55
PROVIDERS: ADMIT Psychiatry & Neurology Neurology; ATTEND Psychiatry & Neurology Neurology
DX: F41.9 Anxiety disorder, unspecified (principal); R41.9 Unspecified symptoms and signs involving cognitive functions and awareness; F79 Unspecified intellectual disabilities; R26.89 Other abnormalities of gait and mobility; E78.5 Hyperlipidemia, unspecified; E61.1 Iron deficiency; E66.9 Obesity, unspecified; K21.9 Gastro-esophageal reflux disease without esophagitis; I10 Essential (primary) hypertension; Z90.49 Acquired absence of other specified parts of digestive tract; Z79.899 Other long term (current) drug therapy; Z88.0 Allergy status to penicillin